=== PATIENT | female | born 1990 | race Two or more races ===

== ENCOUNTER 2021-08-02 01:05 | Inpatient (IN) | payer OTHER ==
[2021-08-02] MEDS ORDERED: PRENATAL TABLE1 EAC1 PO (02:03)
[2021-08-02] MEDS ORDERED: CHILDREN'S ASPI81 MG PO (02:04)
[2021-08-02] MEDS ORDERED: ETODOLAC400 MG (13:30)
[2021-08-05] MEDS ORDERED: IBUPROFEN800 MG PO (08:15)
[2021-08-05] MEDS ORDERED: OXYC1TAB9 PO (08:16)
[2021-08-05] MEDS ORDERED: DOCUSATE SODIU100 MG PO (08:16)
== END 2021-08-05 14:26 | disposition home or self-care (01) | DRG 788 ==
LOC: O/R 01:05 → OB/GYN 01:05 → LDR 01:05 → O/R 14:01 → OB/GYN 15:25
PROVIDERS: ADMIT Obstetrics & Gynecology; ATTEND Obstetrics & Gynecology
PROC: 4A1HXCZ Monitoring of Products of Conception, Cardiac Rate, External Approach (ICD-10-PCS; 2021-08-02)
PROC: 10D00Z1 Extraction of Products of Conception, Low, Open Approach (ICD-10-PCS; principal; 2021-08-02 13:00)
DX: O14.03 Mild to moderate pre-eclampsia, third trimester (principal); Z3A.37 37 weeks gestation of pregnancy; Z37.0 Single live birth; Z20.822 Contact with and (suspected) exposure to COVID-19